=== PATIENT | female | born 1985 | race African-American/Black ===

== ENCOUNTER 2017-11-21 14:45 | Emergency (ER) | payer OTHER ==
[2017-11-21] MEDS ORDERED: RHO(D) IMMUNE GLOBULIN 1,500 UNIT DISP.SYRIN IM ONE (14:56)
[2017-11-21 14:58] VITALS: BP 145/77; PULSE 87; TEMP 98.6; BMI 44.1
--- NOTE | 2017-11-21 15:00 | PDOC ---
Rapid Medical Evaluation Chief Complaint: Revisit,Rabies Injection Time Seen by Provider: 11/21/17 14:55 Medical Evaluation: Allergies Allergy/AdvReac Type Severity Reaction Status Date / Time No Known Allergies Allergy Verified 11/21/17 14:55 11/21/17 14:57 I have performed a brief in-person evaluation of this patient. The patient presents with a chief complaint of: dx w/ spon ab @ 7 weeks in ED recently, RH neg and did not receive rhogam, was contacted to return for injection today Pertinent physical exam findings:unremarkable I have ordered the following:rhogam The patient will proceed to the ED for further evaluation. Discharge Disposition - Diagnosis Complete - Referrals - Patient Instructions - Post Discharge Activity
--- NOTE | 2017-11-21 16:12 | PDOC ---
History of Present Illness - General Chief Complaint: Revisit,Rabies Injection Stated Complaint: FOLLOW UP SHOT Time Seen by Provider: 11/21/17 14:55 History Source: Patient Exam Limitations: No Limitations - History of Present Illness Initial Comments: 11/21/17 16:06 32-year-old woman presents emergency departments status post spontaneous . Patient was seen and evaluated here yesterday and was found to be Rh- . Patient did not receive Rhogam prior to discharge was told to return to receive Rhogam injection. Patient reports mild abdominal cramping consistent with her usual menstrual period and has used 3 pads today to control her bleeding. Past History - Past Medical History Allergies/Adverse Reactions: Allergies Allergy/AdvReac Type Severity Reaction Status Date / Time No Known Allergies Allergy Verified 11/21/17 14:55 Home Medications: Ambulatory Orders Cephalexin Monohydrate [Keflex -] 500 mg PO BID #10 capsule 11/20/17 Metformin HCl [Metformin HCl ER] 1,000 mg PO DAILY 11/20/17 Ramipril 10 mg PO DAILY 11/20/17 Sitagliptin Phosphate [Januvia] 25 mg PO DAILY 11/20/17 COPD: No Diabetes: Yes - Reproductive History Polycystic Ovaries: Yes - Immunization History Immunization Up to Date: Yes - Suicide/Smoking/Psychosocial Hx Smoking History: Never smoked Information on smoking cessation initiated: No Hx Alcohol Use: No Drug/Substance Use Hx: No Substance Use Type: None Review of Systems - Review of Systems Able to Perform ROS?: Yes Is the patient limited [place] proficient: No Constitutional: No: Symptoms Reported HEENTM: No: Symptoms Reported Respiratory: No: Symptoms reported Cardiac (ROS): No: Symptoms Reported ABD/GI: Yes: See HPI : No: Symptoms Reported Musculoskeletal: No: Symptoms Reported Integumentary: No: Symptoms Reported Neurological: No: Symptoms reported Endocrine: No: Symptoms Reported Hematologic/Lymphatic: No: Symptoms Reported *Physical Exam - Vital Signs Last Vital Signs Temp Pulse Resp BP Pulse Ox 98.6 F 87 17 145/77 100 11/21/17 14:56 11/21/17 14:56 11/21/17 14:56 11/21/17 14:56 11/21/17 14:56 - Physical Exam General Appearance: Yes: Appropriately Dressed. No: Apparent Distress Gastrointestinal/Abdominal: positive: Normal Bowel Sounds, Soft. negative: Tender Musculoskeletal: positive: Normal Inspection. negative: CVA Tenderness Extremity: positive: Normal Inspection Integumentary: positive: Normal Color, Dry, Warm Neurologic: positive: Alert, Normal Response Medical Decision Making - Medical Decision Making 11/21/17 16:30 A/P: 32-year-old woman status post spontaneous who needs Rhogam Abdomen soft nontender nondistended Type and screen, Rhogam, discharge *DC/Admit/Observation/Transfer Diagnosis at time of Disposition: Complete - Discharge Dispostion Condition at time of disposition: Fair Decision to Admit order: No - Referrals - Patient Instructions Additional Instructions: Return to emergency department for worsening bleeding, severe pain, fevers, chills or any other concerns. Thank you very much for choosing us to provide your emergent health care needs. - Post Discharge Activity
== END 2017-11-21 18:54 | disposition home or self-care (01) ==
LOC: JERFT 14:45
PROC: 3E0234Z Introduction of Serum, Toxoid and Vaccine into Muscle, Percutaneous Approach (ICD-10-PCS; principal; 2017-11-21)
DX: O03.9 Complete or unspecified spontaneous abortion without complication (principal); Z31.82 Encounter for Rh incompatibility status
CPT/HCPCS: 86850; 86900; 86901; 86999; 99281-25; J1561